=== PATIENT | female | born 1975 | race Caucasian/White ===

== ENCOUNTER 2017-02-26 13:02 | Inpatient (IN) | payer BC ==
[~2017-02-26] VITALS: Ht 165.1 cm; Wt 74.7 kg
--- NOTE | ~2017-02-26 | EKG ---
[address] [place] [place] [employer] [place] [address] ELECTROCARDIOGRAM REPORT Name: KLEBER BERTRAND MARIA ANTONIA Room #: 311-P ADM IN M.R.#: [id number] Admission: 02/26/17 Attend Phys: Jose Baires MD Discharge: Date of : 71 Report #: [id number] THIS REPORT FOR: //name// [facility] ED Test Date: 2017-02-26 Test Time: 13:00:07 Pat Name: KLEBER BERTRAND Department: Room: [facility] Gender: F Bingo Attendant: Mary JOSEPH : 1975 Requested By: Laron Wheat Order Number: [id number] MD: Vinny London Measurements Intervals [place] Rate: 83 P: 76 NM: 135 QRS: 40 QRSD: 83 T: 18 QT: 365 QTc: 429 Interpretive Statements Sinus rhythm No significant abnormality No previous ECG available for comparison Electronically Signed On 02-26-2017 16:53:06 CDT by Vinny London [email or web address] <ELECTRONICALLY SIGNED> By: Vinny London MD, [facility] 02/26/17 1653 1300 1300 Vinny London MD, FACC /EPI
[2017-02-26 13:18] VITALS: BP 129/79
[2017-02-26 13:38] LABS: ABSOLUTE NEUTROPHILS 4.9 thou/uL (1.4-8.2); BASOPHILS 0.6 % (0.0-2.0); EOSINOPHILS 1.9 % (0.0-3.0); HEMATOCRIT 39.4 % (37.0-47.0); HEMOGLOBIN 13.4 gm/dL (12.0-15.0); MCH 30.5 pg (26.0-34.0); MCV 89.5 fL (80.0-100.0); MONOCYTES 9.2 % (1.0-8.0); PLATELET COUNT 178 thou/uL (150-400); POLYS 62.3 % (36.0-66.0); RBC 4.41 mil/uL (4.20-5.00); RDW 12.9 % (10.5-14.5); WBC 7.9 thou/uL (4.0-11.0)
[2017-02-26 13:44] LABS: MANUAL DIFF NO
[2017-02-26 13:49] LABS: ANION GAP 11 mmol/L (7-16); BUN 12 mg/dL (7-18); CHLORIDE 104 mmol/L (98-107); CO2 25 mmol/L (21-32); CREATININE 0.7 mg/dL (0.6-1.0); GLUCOSE 100 mg/dL (74-106); POTASSIUM 3.9 mmol/L (3.5-5.1); SODIUM 140 mmol/L (136-145)
[2017-02-26 13:52] LABS: APTT 26.2 Seconds (24.5-32.8)
[2017-02-26 13:59] LABS: ALBUMIN 3.9 g/dL (3.4-5.0); ALKALINE PHOSPHATASE 63 U/L (46-116); MAGNESIUM 2.2 mg/dL (1.8-2.4); NT-PRO BRAIN NAT PEPTIDE 15 pg/mL (<300); SGOT 26 U/L (15-37); SGPT 38 U/L (30-65); TOTAL BILIRUBIN 0.4 mg/dL (<0.1-1.0); TOTAL PROTEIN 8.1 g/dL (6.4-8.2); TROPONIN-I < 0.04 ng/mL (<0.04-0.07)
[2017-02-26 15:52] VITALS: BP 138/86
[2017-02-26 16:52] VITALS: BP 100/60
[2017-02-26 19:38] VITALS: BP 109/57
[2017-02-27 04:05] VITALS: BP 91/54
[2017-02-27 04:49] LABS: CALCIUM 8.1 mg/dL (8.5-10.1); CREATININE 0.7 mg/dL (0.6-1.0); POTASSIUM 3.9 mmol/L (3.5-5.1)
[2017-02-27 07:16] VITALS: BP 99/54
[2017-02-27 14:00] VITALS: BP 99/54
== END 2017-02-27 15:24 | disposition home or self-care (01) | DRG 392 ==
LOC: ER 13:02 → EROBS 15:05 → 3N 15:48
PROVIDERS: Emergency Medicine; Internal Medicine Endocrinology, Diabetes & Metabolism
DX: K21.9 Gastro-esophageal reflux disease without esophagitis (principal); R20.9 Unspecified disturbances of skin sensation; Z84.89 Family history of other specified conditions; Z82.49 Family history of ischemic heart disease and other diseases of the circulatory system
CPT/HCPCS: 10096

== ENCOUNTER → 2020-09-17 | Outpatient (CLI) | payer OTHER | LOC: CAT 14:20 | PROVIDERS: ATTEND Family Medicine | DX: Z13.6 Encounter for screening for cardiovascular disorders (principal); E78.00 Pure hypercholesterolemia, unspecified; I25.10 Atherosclerotic heart disease of native coronary artery without angina pectoris ==